=== PATIENT | female | born 1960 | race Caucasian/White ===

== ENCOUNTER 2018-12-12 17:32 | Emergency (ER) | payer OTHER, BC ==
[~2018-12-12] VITALS: Ht 160 cm; Wt 96.8 kg
[~2018-12-12 17:32] MED LIST: ASPI-1265 PO; BUS15T PO; DESV50TA PO; EST1T PO; ESTR10TA VG; FLUO20CA39 PO; LOP25T PO; LORA0.5T PO; PANT40TA39 PO
[2018-12-12] MEDS ORDERED: LIDOcaine 5% patch TP STA (19:34)
[2018-12-12] MEDS ORDERED: ketorolac tromethamine 15mg/ml inj. IM ONE (19:35)
[2018-12-12 20:21] VITALS: BP 128/61
== END 2018-12-12 20:28 | disposition home or self-care (01) ==
LOC: ER 17:32
DX: S13.8XXA Sprain of joints and ligaments of other parts of neck, initial encounter (principal); M25.511 Pain in right shoulder; Z88.5 Allergy status to narcotic agent; Z88.6 Allergy status to analgesic agent; Z79.82 Long term (current) use of aspirin; Z79.899 Other long term (current) drug therapy; V49.49XA Driver injured in collision with other motor vehicles in traffic accident, initial encounter; Y93.89 Activity, other specified; Y92.488 Other paved roadways as the place of occurrence of the external cause; Y99.8 Other external cause status
CPT/HCPCS: 96372; 99283; J1885

== ENCOUNTER 2019-08-03 11:34 | Emergency (ER) | payer BC, MEDICAID, OTHER ==
[~2019-08-03] VITALS: Ht 160 cm; Wt 95.5 kg
[2019-08-03 11:42] VITALS: BP 149/97
== END 2019-08-03 12:11 | disposition home or self-care (01) ==
LOC: ER 11:34
DX: R04.0 Epistaxis (principal); Z88.5 Allergy status to narcotic agent; Z88.6 Allergy status to analgesic agent; Z79.82 Long term (current) use of aspirin; Z79.899 Other long term (current) drug therapy
CPT/HCPCS: 99281

== ENCOUNTER 2019-11-24 12:18 | Emergency (ER) | payer MEDICAID ==
[~2019-11-24] VITALS: Ht 160 cm; Wt 94.0 kg
--- NOTE | 2019-11-24 13:30 | NUR ---
KIRAN [id number]
[2019-11-24] MEDS ORDERED: diazepam 5mg tablet PO ONE (13:35)
[2019-11-24] MEDS ORDERED: MECL-159 PO (13:50)
[2019-11-24] MEDS ORDERED: ONDA4TAB6 PO (13:50)
--- NOTE | 2019-11-24 13:58 | NUR ---
as per pa burn assess the pt after 30 min to assess for symp to resolve after admin of diazepam,will follow the orders.
[2019-11-24 15:00] VITALS: BP 124/82
== END 2019-11-24 15:02 | disposition home or self-care (01) ==
LOC: ER 12:19
DX: H81.13 Benign paroxysmal vertigo, bilateral (principal); Z88.5 Allergy status to narcotic agent; Z88.6 Allergy status to analgesic agent; Z79.82 Long term (current) use of aspirin; Z98.890 Other specified postprocedural states
CPT/HCPCS: 99283

== ENCOUNTER 2022-07-05 06:31 | Day surgery (SDC) | payer MEDICAID ==
[2022-07-01 14:58] LABS: BASOPHILS # (AUTO) 0.1 X10'3 (0-0.2); BASOPHILS % (AUTO) 0.6 % (0-1); EOSINOPHILS # (AUTO) 0.1 X10'3 (0-0.9); EOSINOPHILS % (AUTO) 1.6 % (0-6); LYMPHOCYTES # (AUTO) 2.3 X10'3 (1.1-4.8); LYMPHOCYTES % (AUTO) 26.9 % (21-51); MEAN CORPUSCULAR HEMOGLOBIN 30.3 PG (27.0-31.0); MEAN CORPUSCULAR HGB CONC 33.7 g/dL (33.0-36.5); MEAN PLATELET VOLUME 7.9 FL (7.4-10.4); MONOCYTES # (AUTO) 0.5 X10'3 (0-0.9); MONOCYTES % (AUTO) 6.4 % (2-12); NEUTROPHILS # (AUTO) 5.5 X10'3 (1.8-7.7); NEUTROPHILS % (AUTO) 64.5 % (42-75); PRE OP HEMATOCRIT 38.3 % (35.0-45.0); PRE OP HEMOGLOBIN 12.9 g/dL (12.0-16.0); PRE OP PLATELET COUNT 283 X10'3 (140-440); RED BLOOD COUNT 4.26 X10'6 (4.20-5.60); RED CELL DISTRIBUTION WIDTH 13.2 % (11.5-14.5)
[2022-07-01 15:08] LABS: ALBUMIN 3.7 G/DL (3.4-5.0); ALBUMIN/GLOBULIN RATIO 1.2 (1.1-1.5); ALKALINE PHOSPHATASE 78 IU/L (46-116); BLOOD UREA NITROGEN 11 MG/DL (7-18); BUN/CREATININE RATIO 16.7 (10.0-20.0); CALCIUM 8.7 MG/DL (8.5-10.1); CHLORIDE 105 MMOL/L (99-107); CREATININE 0.66 MG/DL (0.40-0.90); PRE OP ALT 17 U/L (30-65); PRE OP ANION GAP 9 (8-16); PRE OP AST 14 U/L (10-37); PRE OP BILIRUB, TOTAL 0.3 MG/DL (0.0-1.0); PRE OP GLUCOSE 95 MG/DL (70-104); PRE OP POTASSIUM 3.7 MMOL/L (3.4-5.1); PRE OP SODIUM 141 MMOL/L (135-145); TOTAL CARBON DIOXIDE 26.7 MMOL/L (24-32); TOTAL PROTEIN 6.8 G/DL (6.4-8.2); eGFR > 90 ML/MIN
[~2022-07-05] VITALS: Ht 160 cm; Wt 91.6 kg
[2022-07-05] VITALS (12 sets, daily range): BP systolic 113–132; BP diastolic 70–95
[~2022-07-05 06:31] MED LIST changes: -ASPI-1265 PO; +DESV100T16 PO; -DESV50TA PO; +DOCUMENT DATE & TIME OF BETA-BLOCKER PO ONE; -EST1T PO; -ESTR10TA VG; +FAMO-128 PO; -LOP25T PO; -LORA0.5T PO; +METO25TA6 PO; -PANT40TA39 PO; +cefazolin 2gm/D5W 100mL 100 ML IV ONE; +famotidine 20mg tablet PO ONE; +ringers solution, lacted 1,000 ML IV SCH
[2022-07-05] MEDS ORDERED: BUPIVAcaine/PF 2.5 mg/ml (0.25%) 30ml vial ONE (07:49)
[2022-07-05] MEDS ORDERED: morphine 2 MG/ML inj. syringe IV PRN (08:00)
[2022-07-05] MEDS ORDERED: labetalol 20mg/4ml (5mg/ml) syringe IV PRN (08:00)
[2022-07-05] MEDS ORDERED: ondansetron/PF 4mg/2ml inj IV PRN (08:00)
[2022-07-05] MEDS ORDERED: ringers solution, lacted 1,000 ML IV SCH (08:00)
[2022-07-05] MEDS ORDERED: morphine 4 MG/ML inj SYRINge IV PRN (08:00)
[2022-07-05] MEDS ORDERED: fentaNYL/PF 50MCG/1 ML 2ML syringe ONE (09:01)
[2022-07-05] MEDS ORDERED: MIDAZolam 1mg/ml 10ml vial ONE (09:01)
[2022-07-05] MEDS ORDERED: ketorolac trometh. 30mg/ml inj. ONE (09:22)
[2022-07-05] MEDS ORDERED: LIDOcaine 0.5% (5mg/ml) 50ml vial ONE (09:22)
--- NOTE | 2022-07-05 09:50 | NUR ---
Received from OR via [facility], accompanied by Anesthesiologist DR SAENZ and report given by Anesthesiologist AND QUALITY ENG. PT DROWSY, DENIES PAIN, LEFT ARM FROM ELBOW TO TIP OF FINGERS AND THUMB W/DANICA WRAP COVERING INCISION/DRSG/SPLINT CDI. 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 Addendum: 07/05/22 at 1008 by Tami Bradley RN Amended: Links added.
--- NOTE | 2022-07-05 11:30 | NUR ---
PT UP AND ABLE TO AMBULATE SAFELY, PT DENIES PAIN. DRSG REMAINS CDI. D/C INSTRUCTIONS GIVEN AND GONE OVER W/PT WHO VERBALIZED UNDERSTANDING. PT D/CD TO HOME VIA W/C TO PRIVATE VEHICLE W/O INCIDENT. Addendum: 07/05/22 at 1137 by Tami Bradley RN Amended: Links added.
== END 2022-07-05 11:30 | disposition home or self-care (01) ==
LOC: PAS 06:31
PROVIDERS: ATTEND Orthopaedic Surgery Hand Surgery
DX: M18.12 Unilateral primary osteoarthritis of first carpometacarpal joint, left hand (principal); E66.9 Obesity, unspecified; Z68.35 Body mass index [BMI] 35.0-35.9, adult; I10 Essential (primary) hypertension; F32.A Depression, unspecified; F41.9 Anxiety disorder, unspecified; K21.9 Gastro-esophageal reflux disease without esophagitis; Z79.899 Other long term (current) drug therapy; Z88.5 Allergy status to narcotic agent; Z88.8 Allergy status to other drugs, medicaments and biological substances; Z98.890 Other specified postprocedural states; Z90.710 Acquired absence of both cervix and uterus; Z72.89 Other problems related to lifestyle
CPT/HCPCS: 25310; 25447; 36415; 80053; 82948; 85025; 93005; J0690; J1885; J2250; J3010; J3490; J7030; J7120; Z7506; Z7512; A4215; A4618; A7000

== ENCOUNTER 2022-08-27 03:40 | Emergency (ER) | payer MEDICAID ==
[~2022-08-27] VITALS: Ht 160 cm; Wt 84.6 kg
[~2022-08-27 03:40] MED LIST changes: -DOCUMENT DATE & TIME OF BETA-BLOCKER PO ONE; -cefazolin 2gm/D5W 100mL 100 ML IV ONE; -famotidine 20mg tablet PO ONE; -ringers solution, lacted 1,000 ML IV SCH
[2022-08-27 03:43] VITALS: BP 164/103
[2022-08-27 04:04] LABS: CLARITY,URINE CLOUDY (Clear); COLOR,URINE YELLOW (Yellow); GLUCOSE, URINE NEGATIVE (Neg); KETONES,URINE NEGATIVE (Neg); LEUKOCYTE ESTERASE ,URINE SMALL (Neg); OCCULT BLOOD,URINE LARGE (Neg); PROTEIN,URINE >=300 mg/dl (Neg)
[2022-08-27 04:06] LABS: UA COLLECTION TYPE CLN CATCH MIDSTREAM
[2022-08-27 04:10] LABS: NITRITES, URINE NEGATIVE (Neg)
[2022-08-27 04:12] LABS: BACTERIA,URINE 2+ /HPF (Neg); MUCUS STRANDS FEW /LPF (Neg); RBC,URINE TNTC /HPF (0-2); SQUAMOUS EPITHELIAL CELL,UR FEW /LPF (FEW); TRANSITIONAL EPI CELLS,URINE FEW /HPF; WBC,URINE TNTC /HPF (0-4)
[2022-08-27] MEDS ORDERED: CEPH-585 PO (04:36)
[2022-08-27] MEDS ORDERED: PHEN-786 PO (04:37)
== END 2022-08-27 04:42 | disposition home or self-care (01) ==
LOC: ER 03:41
DX: N39.0 Urinary tract infection, site not specified (principal); R31.9 Hematuria, unspecified; Z88.5 Allergy status to narcotic agent; Z79.899 Other long term (current) drug therapy
CPT/HCPCS: 81001; 87077; 87088; 87186; 99283

== ENCOUNTER 2023-02-09 09:59 | Emergency (ER) | payer MEDICAID ==
[~2023-02-09] VITALS: Ht 160 cm; Wt 91.8 kg
[~2023-02-09 09:59] MED LIST changes: +CEPH-585 PO; +PHEN-786 PO
[2023-02-09 10:22] VITALS: PULSE 67; RESP 16; TEMP 97.6; O2SAT 98
--- NOTE | 2023-02-09 17:01 | NUR ---
agree with josé vergara's assessment. reviewed.
== END 2023-02-09 17:03 | disposition home or self-care (01) ==
LOC: ER 10:00
DX: S06.0X0A Concussion without loss of consciousness, initial encounter (principal); Z88.5 Allergy status to narcotic agent; Z88.8 Allergy status to other drugs, medicaments and biological substances; X58.XXXA Exposure to other specified factors, initial encounter; Y93.89 Activity, other specified; Y92.89 Other specified places as the place of occurrence of the external cause; Y99.8 Other external cause status
CPT/HCPCS: 70450; 72125; 99284

== ENCOUNTER → 2023-06-24 | Outpatient (CLI) | payer MEDICAID | END | disposition home or self-care (01) | LOC: RAD 15:01 | PROVIDERS: ATTEND Physician Assistant | DX: M19.041 Primary osteoarthritis, right hand (principal); M25.741 Osteophyte, right hand; M79.641 Pain in right hand | CPT/HCPCS: 73110; 73130 ==